=== PATIENT | male | born 1970 | race Caucasian/White ===

== ENCOUNTER → 2017-03-29 | Outpatient (REF) ==
[~2017-03-29] MED LIST: CATAPRES 0.1MG0.1 MG PO; LAMICTAL 25MG T25 MG PO; NO HOME MEDICATIONS; PERCOCET 325 MG1 TA2 PO
== END ==
LOC: ZLAB.WCH 18:18
DX: Z01.89 Encounter for other specified special examinations (principal)

== ENCOUNTER 2021-04-04 08:35 | Inpatient (IN) | payer BC ==
[~2021-04-04] VITALS: Ht 190.7 cm; Wt 97.5 kg
[2021-05-03] VITALS (12 sets, daily range): BP systolic 122–154; BP diastolic 70–99; PULSE 65–106; TEMP 97.8–98.2
[2021-05-03] MEDS ORDERED: VOLTAREN-XR100 MG PO (06:04)
[2021-05-03] MEDS ORDERED: PRILOTC PO (06:18)
[2021-05-03] MEDS ORDERED: ZYLOPRIM 300MG300 MG PO (06:18)
--- NOTE | 2021-05-03 06:30 | NUR ---
The patient ambulated back to [facility] independently using a steady gait and appeared to tolerate the activity well. Vital signs obtained. Consent signed. 18G IV started in left wrist with one sitck, LR infusing without difficulty. Assessment completed. Warm blankets provided. brought back to be at his bedside. Call light is within reach. The patient denies any further needs at this time. Will coninue to monitor the patient.
--- NOTE | 2021-05-03 14:21 | NUR ---
PT TO ROOM 346 PER BED WITH REPORT FROM [facility] PACU @9021. PT IS A/O X3. ASSESSSED ABDOMINAL INCISIONS AND FOUND TO BE CDI WITH GLUED INCISIONS MIDLINE WITH GAUZE AND LEFT LATERAL WITH DRAIN SPONGE AND GAUZE TO GEREMIAS DRAIN WITH MINIMAL DRAINAGE. IV TO PUMP. HO CATHETER TO DD WITH REDDISH DRAINAGE IN BAG. PT DENIES PAIN. AT BEDSIDE
--- NOTE | 2021-05-04 03:30 | NUR ---
PT UP TO CHAIR FOR ABOUT 4 HOURS TOTAL. PT TOLERATED HIS TIME IN THE CHAIR WELL, UP UNTIL ABOUT THE LAST 20 MINUTES OR SO. PT FELT LIKE HE NEEDED SOME PAIN MANAGEMENT AT THE END. PAIN MEDICATION GIVEN. PT RESTING IN BED NOW. PT STATES HE HAS NO OTHER NEEDS AT THIS TIME. CALL LIGHT WITHIN REACH.
[2021-05-04 03:36] VITALS: BP 150/79; PULSE 61; TEMP 98
--- NOTE | 2021-05-04 05:06 | NUR ---
ASSESSMENT COMPLETE FOR THIS SHIFT. PT COOPERATIVE WITH CARES. PT RESTING IN BED WATCHING THE GANE AT THE BEGINNING OF THE SHIFT. PT DENIES PALPITATIONS, SOB OR DIZZINESS. PT COMPLAINS OF PAIN WHICH HE RATES AT A 6 SEVERAL TIMES TONIGHT. PT GIVEN ROXICODONE, MORPHINE AND SCHEDULED TORADOL FOR PAIN. PT COMFORTABLE FOR A WHILE AFTER PAIN MEDICATION GIVEN. WILL CONTINUE TO MONITOR PAIN. URINE OUTPUT HAS BEEN ABOUT 40MLS AN HOUR. PEYTON DRAIN AT ABOUT 60ML OUT AT 0430HRS. PT STATES HE HAS NO OTHER NEEDS AT THIS TIME. CALL LIGHT WITHIN REACH.
[2021-05-04 07:15] LABS: HEMOGLOBIN 11.9 g/dl (13.5-18.0)
[2021-05-04 07:21] LABS: HEMATOCRIT 34.2 % (42.0-52.0)
[2021-05-04 07:35] LABS: CALCIUM 8.9 mg/dL (8.4-10.2); CREATININE, serum 0.87 mg/dL (0.72-1.25); POTASSIUM 4.4 mmol/L (3.5-4.5)
[2021-05-04 08:44] VITALS: BP 118/67; PULSE 69; TEMP 97.3
--- NOTE | 2021-05-04 11:09 | NUR ---
PT UP AMBULATING HALLS INDEPENDENTLY WITH . PAIN WELL CONTROLLED WITH PO MEDS
[2021-05-04 12:07] VITALS: BP 142/89; PULSE 81; TEMP 98
[2021-05-04] MEDS ORDERED: NORCO 325 MG-51 TAB PO (12:51)
--- NOTE | 2021-05-04 12:58 | NUR ---
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 No needs right now.
--- NOTE | 2021-05-04 16:08 | NUR ---
DISCHARGE TEACHING COMPLETE, LEG BAG REVIEWED WITH PT AND . QUESTIONS ANSWERED.
== END 2021-05-04 16:44 | disposition home or self-care (01) | DRG 708 ==
LOC: INPTSU 05-03 05:36 → SURG 05-03 07:30
PROVIDERS: ADMIT Urology
PROC: 07BC4ZZ Excision of Pelvis Lymphatic, Percutaneous Endoscopic Approach (ICD-10-PCS; 2021-05-03)
PROC: 0WQF0ZZ Repair Abdominal Wall, Open Approach (ICD-10-PCS; 2021-05-03)
PROC: 8E0W4CZ Robotic Assisted Procedure of Trunk Region, Percutaneous Endoscopic Approach (ICD-10-PCS; 2021-05-03)
PROC: 0VT04ZZ Resection of Prostate, Percutaneous Endoscopic Approach (ICD-10-PCS; principal; 2021-05-03 07:30)
DX: C61 Malignant neoplasm of prostate (principal); K42.9 Umbilical hernia without obstruction or gangrene
CPT/HCPCS: A4314; A9284; J0690; J1100; J1170; J1885; J2270; J2405; J2704; J3010; J7120

== ENCOUNTER → 2021-05-17 | Outpatient (CLI) | payer BC ==
[~2021-05-17] MED LIST changes: +NORCO 325 MG-51 TAB PO; +PRILOTC PO; +VOLTAREN-XR100 MG PO; +ZYLOPRIM 300MG300 MG PO
== END ==
LOC: COL.RAD 08:00
DX: N99.71 Accidental puncture and laceration of a genitourinary system organ or structure during a genitourinary system procedure (principal)
CPT/HCPCS: Q9967